=== PATIENT | female | born 1945 | race Caucasian/White ===

== ENCOUNTER → 2016-09-22 | Outpatient (CLI) | payer OTHER ==
[~2016-09-22] MED LIST: 'PARAFON FORTE500 M1 PO; COZAAR50 M1 PO; DULE1ARO1 INH; HYDROCODONE BIT1 T11 PO; Motrin,Rufen400 MG PO; PERCOCET 325 MG1 TA2 PO; ZANTAC 150150 MG PO
== END | disposition home or self-care (01) ==
LOC: RAD 12:18
DX: M25.562 Pain in left knee (principal)

== ENCOUNTER → 2016-09-28 | Outpatient (CLI) | payer OTHER | END | disposition home or self-care (01) | LOC: MAMMO 00:48 | DX: Z12.31 Encounter for screening mammogram for malignant neoplasm of breast (principal) ==

== ENCOUNTER 2017-05-04 08:44 | Inpatient (IN) | payer MEDICARE, MEDICAID ==
[~2017-05-04] VITALS: Ht 162.5 cm; Wt 69.9 kg
[2017-05-04 08:50] VITALS: BP 151/80
[2017-05-04 09:05] LABS: BILIRUBIN NEGATIVE (NEGATIVE); BLOOD TRACE-LYSED (NEGATIVE); CLARITY CLEAR (CLEAR); COLOR YELLOW (YELLOW); GLUCOSE NEGATIVE (NEGATIVE); KETONE NEGATIVE (NEGATIVE); LEUKO ESTERASE TRACE (NEGATIVE); NITRITE NEGATIVE (NEGATIVE)
[2017-05-04 09:37] LABS: BASO # 0.1 10*3/uL (0.0-0.1); BASO % 0.5 % (0.0-1.0); EOS # 0.3 10*3/uL (0.0-0.4); EOS % 1.8 % (1.0-4.0); HEMATOCRIT 39.7 % (37.0-47.0); HEMOGLOBIN 12.9 g/dl (12.0-16.0); LYMPH # 1.5 10*3/uL (1.3-4.4); MEAN CELL VOLUME 93.4 fl (81.0-99.0); MEAN CORPUSCULAR HGB 30.4 pg (27.0-31.0); MEAN CORPUSCULAR HGB CONC 32.5 g/dl (33.0-37.0); MEAN PLATELET VOLUME 9.4 fl (9.6-12.3); MONO % 6.4 % (3.0-9.0); NEUT % 80.7 % (47.0-73.0); PLATELET COUNT AUTOMATED 358 10*3/uL (130-400); RED BLOOD COUNT 4.25 10*6/uL (4.10-5.10); RED CELL DISTRI WIDTH 12.3 % (0-14.5); WHITE BLOOD COUNT 14.8 10*3/uL (4.8-10.8)
--- NOTE | 2017-05-04 09:47 | NUR ---
PAIN LEVEL MUCH IMPROVED WITH MORPHINE DOSING. NAUSEA ALREADY RESOLVED.
[2017-05-04 09:52] LABS: ALBUMIN 3.2 gm/dl (3.1-4.5); ALKALINE PHOSPHATASE 109 U/L (45-117); BUN 23 mg/dl (7-24); CHLORIDE 108 mmol/L (98-107); CREATININE 0.97 mg/dL (0.55-1.02); LIPASE 130 U/L (73-393); MAGNESIUM 1.9 mg/dL (1.5-2.1); POTASSIUM 3.4 mmol/L (3.5-5.1); SGOT/AST 35 IU/L (3-35); SGPT/ALT 24 U/L (12-78); SODIUM 137 mmol/L (136-145); TOTAL PROTEIN 7.9 gm/dL (6.4-8.2)
--- NOTE | 2017-05-04 12:10 | NUR ---
ALL TESTING HAS RETURNED, AWAITING RETURN CALL FROM DR ZEE FOR POSSIBLE ADMISION VS TRANSFER.
[2017-05-04 12:28] VITALS: BP 146/80
--- NOTE | 2017-05-04 13:34 | NUR ---
ZOSYN AND SALINE INFUSING AT TIME OF ADMISSION. FENTAYL STOP TIME INFUSION IV PUSH IS NOW.
--- NOTE | 2017-05-04 13:55 | NUR ---
NS BOLUS AND POTASSIUM PHOSPHATE GIVEN. WILL NOT SCAN ON EMAR.
[2017-05-04 14:00] VITALS: BP 135/75
--- NOTE | 2017-05-04 14:00 | NUR ---
A 72, admitted to , under the services of ESE Tapia DO with a diagnosis of LESION OF LIVER, SEPSIS, DIVERTICULITIS OF INTESTINE. Chief complaint is ABDOMINAL PAIN FOR 2 DAYS THAT RADIATES INTO BACK. DENIES URINARY SYMPTOMS. Patient arrived via bed from ER. Monitor applied. Initial assessment completed. Vital signs taken and recorded. ESE TAPIA DO notified of admission to the unit. Orders received. See assessment for past medical history, medications and allergies. Patient and/or family oriented to unit. [facility] visitation policy reviewed. Clothing/patient valuable form completed. SWETHA AGUIRRE
[2017-05-04] MEDS ORDERED: ADVAIR 250/501 EA INH (14:35)
[2017-05-04] MEDS ORDERED: PREDNISONE10 M1 PO (14:37)
--- NOTE | 2017-05-04 15:36 | NUR ---
MED REC UP TO DATE PER PATIENT LIST.
--- NOTE | 2017-05-04 15:50 | NUR ---
DR ROBERTSON AWARE OF CONSULT
[2017-05-04 16:00] VITALS: BP 147/63
--- NOTE | 2017-05-04 16:40 | NUR ---
PT GIVEN PRN IV MORPHINE FOR COMPLAINTS OF ABD PAIN, RATES PAIN 7/10. WILL MONITOR.
--- NOTE | 2017-05-04 17:30 | NUR ---
PT STATES MEDICATION EFFECTIVE FOR PAIN.
[2017-05-04 20:00] VITALS: BP 139/73
--- NOTE | 2017-05-04 20:51 | NUR ---
DR. ESCALERA CALLED AT THIS TIME RETAING TO PT. TEMP BEING 102 ORALLY IN REGARDS TO GIVE PT. PO TYLENOL SINCE PT. IS NPO. DR. ESCALERA GAVE OK TO GIVE PO TYLENOL.
[2017-05-05] VITALS (12 sets, daily range): BP systolic 101–153; BP diastolic 50–72
--- NOTE | 2017-05-05 04:59 | NUR ---
24 HR chart check completed.
[2017-05-05 07:03] LABS: BASO # 0.1 10*3/uL (0.0-0.1); BASO % 0.5 % (0.0-1.0); EOS # 0.2 10*3/uL (0.0-0.4); EOS % 1.5 % (1.0-4.0); HEMATOCRIT 35.4 % (37.0-47.0); HEMOGLOBIN 11.3 g/dl (12.0-16.0); LYMPH # 2.1 10*3/uL (1.3-4.4); LYMPH % 14.9 % (27.0-41.0); MEAN CELL VOLUME 93.7 fl (81.0-99.0); MEAN CORPUSCULAR HGB 29.9 pg (27.0-31.0); MEAN CORPUSCULAR HGB CONC 31.9 g/dl (33.0-37.0); MEAN PLATELET VOLUME 9.9 fl (9.6-12.3); MONO # 1.3 10*3/uL (0.1-1.0); MONO % 9.5 % (3.0-9.0); NEUT # 10.3 10*3/uL (2.3-7.9); NEUT % 73.1 % (47.0-73.0); PLATELET COUNT AUTOMATED 343 10*3/uL (130-400); RED BLOOD COUNT 3.78 10*6/uL (4.10-5.10); RED CELL DISTRI WIDTH 12.1 % (0-14.5); WHITE BLOOD COUNT 14.1 10*3/uL (4.8-10.8)
[2017-05-05 07:30] LABS: CHLORIDE 108 mmol/L (98-107); POTASSIUM 3.7 mmol/L (3.5-5.1); SODIUM 139 mmol/L (136-145)
[2017-05-05 07:39] LABS: ALBUMIN 2.7 gm/dl (3.1-4.5); ALKALINE PHOSPHATASE 90 U/L (45-117); BUN 15 mg/dl (7-24); CHOLESTEROL 124 mg/dL (<200); CREATININE 0.91 mg/dL (0.55-1.02); FREE T4 1.58 ng/dl (0.76-1.46); HDL CHOLESTEROL 52 mg/dl (40-60); LDL CHOLESTEROL 52 mg/dL (9-159); MAGNESIUM 1.9 mg/dL (1.5-2.1); PHOSPHOROUS 2.3 mg/dL (2.5-4.9); SGOT/AST 25 IU/L (3-35); SGPT/ALT 17 U/L (12-78); TOTAL PROTEIN 6.6 gm/dL (6.4-8.2); TRIGLYCERIDES 99 mg/dl (<150); VLDL CHOLESTEROL 20 mg/dL (6-40)
--- NOTE | 2017-05-05 07:54 | NUR ---
Medicated with norco per prn order for complaints of bl lower quads of abdomen. Lungs diminished with exp wheezes noted to left side anterior and posteriorly. IVF infusing per orders. See assesment.
[2017-05-05] MEDS ORDERED: PROVENTIL HFA6.7 GM INH (07:56)
[2017-05-05 08:10] LABS: VITAMIN D, 25-HYDROXY 21.6 ng/mL (30-100)
--- NOTE | 2017-05-05 08:54 | NUR ---
Pt states that pain medication was effective. Dr. Webster in and rounded on pt.
--- NOTE | 2017-05-05 09:02 | NUR ---
Dr. Webster called the floor to notify me that he had spoke with Dr. Gates regarding MRI and possiblity of liver biopsy. Dr. Webster states that MRI is not needed and that Dr. Gates is recommending liver biopsy. Dr. Webster states that Dr. Gates can perform this today. Requesting that primary be notified of this so that they can order. I spoke with Dr. Young and notified him of what Dr. Webster stated regarding his conversation with Dr. Gates. Dr. Young states ok for me to enter orders as discussed.
--- NOTE | 2017-05-05 09:17 | NUR ---
[employer] in to talk to patient. Patient states lives at home with son. There are few steps in the home. 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 MAYITO AMAYA
--- NOTE | 2017-05-05 11:22 | NUR ---
Pt being taken off floor for liver biopsy.
--- NOTE | 2017-05-05 12:15 | NUR ---
Pt returned from having liver biopsy. Instructed to remain on bedrest for 4 hours. Bp was 146/69 hr 88, respirations 18, oral temp 99.5, pox 97% on RA. Requesting pain medcation. No bleeding noted to [facility], bandaid over site. Assessment completed.
--- NOTE | 2017-05-05 12:21 | NUR ---
Medicated with norco per prn order for complaints of pain at liver biopsy site and lower abdomen.
--- NOTE | 2017-05-05 14:45 | NUR ---
Vitals completed s/p liver biospy. Bandaid intadt to mid upper abdomen from biospy. No bleeding was noted and was checked with each additional vital sign per orders. Pt is currently maintained on bed rest and is eating lunch. Dr. Vance saw pt and discussed testing, states that it is ok to dc monitoring analyst. Removed at this time.
--- NOTE | 2017-05-05 19:46 | NUR ---
patient resting in bed with brother, sister in law, and son at bedside. denies pain at this time. iv fluids infusing without difficulty. no needs made at this time. bed in lowest position, call light inr each
--- NOTE | 2017-05-05 20:09 | NUR ---
DR HUERTA AWARE OF PATIENT WHEEZING AND REQUESTING HOME INHALER BEING CONTINUED. STATES HE WILL TAKE CARE OF IT
--- NOTE | 2017-05-05 20:31 | NUR ---
medicated with prn norco for abd pain rated 3/10 on a 0/10 pain scale, temp of 100
--- NOTE | 2017-05-05 21:59 | NUR ---
call dr jones to remind him about ordering the patient's home inhaler. states he ordered it on the wrong room and apologized. states will order it now
[2017-05-06] VITALS: BP 121/58
--- NOTE | 2017-05-06 01:27 | NUR ---
PATIENT RESTING IN BED WITH NO S/S OF DISTRESS. MEDICATED WITH PRN TYLENOL FOR TEMP OF 100. WILL CONTINUE TO MONITOR
--- NOTE | 2017-05-06 05:32 | NUR ---
24 HR chart check completed.
[2017-05-06 06:09] LABS: BASO # 0.1 10*3/uL (0.0-0.1); BASO % 0.4 % (0.0-1.0); EOS # 0.3 10*3/uL (0.0-0.4); HEMATOCRIT 32.3 % (37.0-47.0); HEMOGLOBIN 10.3 g/dl (12.0-16.0); LYMPH # 1.9 10*3/uL (1.3-4.4); LYMPH % 14.6 % (27.0-41.0); MEAN CELL VOLUME 94.7 fl (81.0-99.0); MEAN CORPUSCULAR HGB 30.2 pg (27.0-31.0); MEAN CORPUSCULAR HGB CONC 31.9 g/dl (33.0-37.0); MEAN PLATELET VOLUME 9.5 fl (9.6-12.3); MONO # 1.1 10*3/uL (0.1-1.0); MONO % 8.5 % (3.0-9.0); NEUT # 9.8 10*3/uL (2.3-7.9); NEUT % 73.7 % (47.0-73.0); PLATELET COUNT AUTOMATED 268 10*3/uL (130-400); RED BLOOD COUNT 3.41 10*6/uL (4.10-5.10); RED CELL DISTRI WIDTH 12.2 % (0-14.5); WHITE BLOOD COUNT 13.3 10*3/uL (4.8-10.8)
[2017-05-06 06:48] LABS: BUN 16 mg/dl (7-24); CHLORIDE 110 mmol/L (98-107); MAGNESIUM 1.9 mg/dL (1.5-2.1); POTASSIUM 4.2 mmol/L (3.5-5.1); SODIUM 139 mmol/L (136-145)
[2017-05-06 06:49] LABS: CREATININE 0.93 mg/dL (0.55-1.02); PHOSPHOROUS 2.3 mg/dL (2.5-4.9)
--- NOTE | 2017-05-06 07:34 | NUR ---
PATIENT C/O LLQ ABDOMINAL PAIN. RATED PAIN 7/10 ON PAIN SCALE. MEDICATED WITH NORCO PER PRN ORDER.
[2017-05-06 08:00] VITALS: BP 132/68
--- NOTE | 2017-05-06 09:00 | NUR ---
case management visits with patient, patient denies any home needs at this time
[2017-05-06 12:00] VITALS: BP 138/70
[2017-05-06 16:00] VITALS: BP 121/61
--- NOTE | 2017-05-06 17:27 | NUR ---
MEDICATED WITH TYLENOL PER PRN ORDER FOR TEMPERATURE 102.6. WILL CONTINUE TO MONITOR.
[2017-05-06 20:00] VITALS: BP 115/60
--- NOTE | 2017-05-06 20:00 | NUR ---
PATIENT RESTING IN BED WATCHING TV. FLUIDS INFUSING WITHOUT DIFFICULTY. ALERT TO PERSON PLACE AND TIME. LUNGS CLEAR TO AUSCULATION. PATIENT STATES SHE HAS NOT HAD A BOWEL MOVEMENT TODAY BUT HAS BEEN PASSING GAS. BANDAGE DRY AND INTACT TO ABDOMEN. BED IN LOWEST POSITOIN, CALL LIGHT IN REACH
--- NOTE | 2017-05-06 20:28 | NUR ---
NORCO PRN GIVEN FOR ABD PAIN RATED 6/10 ON A 0/10 PAIN SCALE. WILL MONITOR, BED IN LOWEST POSITION, CALL LIGHT IN REACH
--- NOTE | 2017-05-06 21:28 | NUR ---
MEDICATION EFFECTIVE PER PATIENT
[2017-05-07] VITALS: BP 117/64
--- NOTE | 2017-05-07 02:16 | NUR ---
PATIENT RESTING IN BED ON LEFT SIDE WITH EYES CLOSED. NO S/S OF DISTRESS. BED IN LOWEST POSITION, CALL LIGHT IN REACH
[2017-05-07 06:27] LABS: BASO % 0.3 % (0.0-1.0); EOS # 0.4 10*3/uL (0.0-0.4); EOS % 3.7 % (1.0-4.0); HEMATOCRIT 30.1 % (37.0-47.0); HEMOGLOBIN 9.6 g/dl (12.0-16.0); LYMPH # 1.5 10*3/uL (1.3-4.4); LYMPH % 13.2 % (27.0-41.0); MEAN CELL VOLUME 95.3 fl (81.0-99.0); MEAN CORPUSCULAR HGB 30.4 pg (27.0-31.0); MEAN CORPUSCULAR HGB CONC 31.9 g/dl (33.0-37.0); MEAN PLATELET VOLUME 10.1 fl (9.6-12.3); MONO # 0.9 10*3/uL (0.1-1.0); MONO % 7.7 % (3.0-9.0); NEUT # 8.7 10*3/uL (2.3-7.9); NEUT % 74.3 % (47.0-73.0); PLATELET COUNT AUTOMATED 286 10*3/uL (130-400); RED BLOOD COUNT 3.16 10*6/uL (4.10-5.10); RED CELL DISTRI WIDTH 12.2 % (0-14.5); WHITE BLOOD COUNT 11.6 10*3/uL (4.8-10.8)
[2017-05-07 06:29] LABS: BUN 12 mg/dl (7-24); CHLORIDE 112 mmol/L (98-107); SODIUM 140 mmol/L (136-145)
[2017-05-07 06:30] LABS: CREATININE 0.78 mg/dL (0.55-1.02); PHOSPHOROUS 1.5 mg/dL (2.5-4.9)
[2017-05-07 08:00] VITALS: BP 160/78
--- NOTE | 2017-05-07 08:19 | NUR ---
Dr. Webster in . discussed bx results w/ pt. family was called by pt. and in to discuss trsf. pt. expressed anxiety over result , will discuss antianxiety w/ physician. pt. stated she would like just a small dose.
--- NOTE | 2017-05-07 08:25 | NUR ---
Dr. Pablo was notified of pt. need for light sedative.
--- NOTE | 2017-05-07 09:00 | NUR ---
case management visits with patient, patient denies any home needs at this time
--- NOTE | 2017-05-07 10:09 | NUR ---
Dr. Webster in and spoke w/ pt. family re: bx result and need for transfer. All members in agreement. Dr. Webster also spoke w/ Dr. Weber. Arrangements pending. Medicated for anxiety see E-Mar. Pain med effective to reduce pain.
[2017-05-07 12:00] VITALS: BP 118/79
--- NOTE | 2017-05-07 14:27 | NUR ---
Medicated for c/o abdominal pain 01/13
[2017-05-07 16:00] VITALS: BP 135/68
[2017-05-07] MEDS ORDERED: ATIVAN0.5 MG PO (16:03)
[2017-05-07] MEDS ORDERED: AUGMENTIN 875875 MG PO (16:03)
[2017-05-07] MEDS ORDERED: NORCO 5-325 TA1 EACH PO (16:07)
--- NOTE | 2017-05-07 17:36 | NUR ---
Med effective for pain reduction. Dr. najera in spoke w/ Pt. and Dr. Webster. Re; Discharge to home w/ palm follow up. Pt. and family agreeable. Dr. Arnold office called in to confirm appointment. Discharge order recieved. Instruction given . Voiced understanding. . Pt was medicated w/ tylenol and discharged to home.
== END 2017-05-07 17:36 | disposition home or self-care (01) | DRG 871 ==
LOC: ED 08:44 → EDHOLD 12:47 → 4E 12:47
PROVIDERS: Emergency Medicine; Internal Medicine Hospice and Palliative Medicine; Student in an Organized Health Care Education/Training Program; ADMIT Internal Medicine
PROC: 0FB23ZX Excision of Left Lobe Liver, Percutaneous Approach, Diagnostic (ICD-10-PCS; principal; 2017-05-05)
DX: A41.9 Sepsis, unspecified organism (principal); E43 Unspecified severe protein-calorie malnutrition; E87.8 Other disorders of electrolyte and fluid balance, not elsewhere classified; C78.7 Secondary malignant neoplasm of liver and intrahepatic bile duct; K57.20 Diverticulitis of large intestine with perforation and abscess without bleeding; R31.29 Other microscopic hematuria; C80.1 Malignant (primary) neoplasm, unspecified; N30.00 Acute cystitis without hematuria; I10 Essential (primary) hypertension; E87.6 Hypokalemia; J45.909 Unspecified asthma, uncomplicated; K63.5 Polyp of colon; Z90.710 Acquired absence of both cervix and uterus; Z83.3 Family history of diabetes mellitus; Z87.81 Personal history of (healed) traumatic fracture; Z68.26 Body mass index [BMI] 26.0-26.9, adult; Z79.899 Other long term (current) drug therapy; Z80.42 Family history of malignant neoplasm of prostate

== ENCOUNTER → 2017-05-17 | Outpatient (CLI) | payer MEDICARE, MEDICAID ==
[~2017-05-17] MED LIST changes: +ADVAIR 250/501 EA INH; +ATIVAN0.5 MG PO; +AUGMENTIN 875875 MG PO; +NORCO 5-325 TA1 EACH PO; +PREDNISONE10 M1 PO; +PROVENTIL HFA6.7 GM INH
--- NOTE | ~2017-05-17 | ST ---
[place], [place] EXERCISE STRESS TEST REPORT [id number] UNIT #: [id number] ROOM: DOCTOR: JHON BRUMFIELD MD BIRTHDATE: [birth year] DOS: 05/17/2017 EXERCISE STRESS TEST. REASON FOR STRESS TEST: Preoperative assessment, prior liver surgery, history of hypertension. PROCEDURE: The patient walked on a full Jona protocol for 3 minutes and had to stop because of fatigue and dyspnea. She denied any associated chest pain. Her resting heart rate of 95 jose to a maximum heart rate of 162, which represented 108% of her maximum predicted heart rate at a workload of 5 mets. Her resting blood pressure of 160/78 jose to 210/50. The resting electrocardiogram showed sinus rhythm with mild nonspecific ST changes. With exercise, the patient did have frequent premature ventricular contractions with occasional couplets. She also developed [address] segment depression in leads V4 through V6 and leads II, III and aVF. These EKG changes reverted to baseline within 1 minute of the completion of the exercise test. The Beatty treadmill score was -7 consistent with a moderate risk for cardiac events in the next year. IMPRESSION: 1. Limited exercise capacity. The patient had to stop because of dyspnea. She did not have any chest pain. 2. Hypertensive blood pressure response to exercise. 3. Abnormals electrocardiographic response to exercise with flat ST segment depression in the inferior and lateral leads that reverted to baseline early in recovery. The Beatty treadmill score was -7 consistent with a moderate risk for cardiac events. The results of the stress test are not conclusive given her baseline EKG changes, and limited exercise capacity and hypertensive blood pressure response. I would suggest a pharmacologic nuclear perfusion study for further assessment of the patient's cardiac status. JHON BRUMFIELD MD CM:STRESS:EXERCISE STRESS TEST REPORT [id number] JHON BRUMFIELD MD
--- NOTE | 2017-05-17 10:45 | NUR ---
INFORMED CONSENT SIGNED FOR STANDARD STRESS TEST WITH DR. BRUMFIELD. RESTING EKG NSR, HR 95, BP 160/78. COMPLETED 3:00 OF A STANDARD CHRIS PROTOCOL COMPLETING STAGE I, 1.7 MPH/10% GRADE. PEAK HEART RATE OF 162 ACHIEVED WHICH IS 108% OF PREDICTED MAXIMUM AND A PEAK BP OF 210/50. TEST TERMINATED D/T FATIGUE. PVC/COUPLETS NOTED WITH ST CHANGES. HAS A FAIR EXERCISE TOLERANCE. LAST RECOVERY HR 111, BP 210/72. THIS IS AN ABNORMAL STRESS TEST. LEFT CARDIOLOGY IN STABLE CONDITION.
== END | disposition home or self-care (01) ==
LOC: CARD 01:16
DX: Z01.810 Encounter for preprocedural cardiovascular examination (principal); C22.9 Malignant neoplasm of liver, not specified as primary or secondary; I10 Essential (primary) hypertension

== ENCOUNTER → 2021-08-06 | Outpatient (CLI) | payer MEDICARE, MEDICAID ==
[~2021-08-06] MED LIST changes: +ASPIRIN ADULT L81 M2 PO; +Ipratropium Brom3 ML INH; +NEBULIZER NEB; +OMNICEF300 MG PO; +[UNRECOGNIZED DRUG - OTHER] PO
[2021-08-06 13:04] LABS: BASO # 0.1 10*3/uL (0.0-0.1); BASO % 0.6 % (0.0-1.0); EOS # 1.5 10*3/uL (0.0-0.4); EOS % 16.9 % (1.0-4.0); HEMATOCRIT 32.4 % (37.0-47.0); LYMPH # 1.1 10*3/uL (1.3-4.4); LYMPH % 12.7 % (27.0-41.0); MEAN CELL VOLUME 99.1 fl (81.0-99.0); MEAN CORPUSCULAR HGB 30.6 pg (27.0-31.0); MEAN CORPUSCULAR HGB CONC 30.9 g/dl (33.0-37.0); MEAN PLATELET VOLUME 9.2 fl (9.6-12.3); MONO # 0.4 10*3/uL (0.1-1.0); MONO % 4.7 % (3.0-9.0); NEUT # 5.4 10*3/uL (2.3-7.9); NEUT % 63.5 % (47.0-73.0); PLATELET COUNT AUTOMATED 236 10*3/uL (130-400); RED BLOOD COUNT 3.27 10*6/uL (4.10-5.10); RED CELL DISTRI WIDTH 12.7 % (0-14.5); WHITE BLOOD COUNT 8.6 10*3/uL (4.8-10.8)
[2021-08-06 13:19] LABS: ALBUMIN 2.9 gm/dl (3.1-4.5); CREATININE 2.25 mg/dL (0.55-1.02); POTASSIUM 4.3 mmol/L (3.5-5.1); TOTAL PROTEIN 7.8 gm/dL (6.4-8.2)
== END | disposition home or self-care (01) ==
LOC: LAB 12:44 → US 13:30
PROVIDERS: Student in an Organized Health Care Education/Training Program; ATTEND Student in an Organized Health Care Education/Training Program
DX: I63.9 Cerebral infarction, unspecified (principal); E78.5 Hyperlipidemia, unspecified; C22.1 Intrahepatic bile duct carcinoma; I65.21 Occlusion and stenosis of right carotid artery

== ENCOUNTER → 2021-09-19 | Outpatient (CLI) | payer MEDICARE, MEDICAID ==
[2021-09-19 14:10] LABS: HEMATOCRIT 30.4 % (37.0-47.0); MEAN CELL VOLUME 98.7 fl (81.0-99.0); MEAN CORPUSCULAR HGB 30.2 pg (27.0-31.0); MEAN CORPUSCULAR HGB CONC 30.6 g/dl (33.0-37.0); MEAN PLATELET VOLUME 9.8 fl (9.6-12.3); PLATELET COUNT AUTOMATED 199 10*3/uL (130-400); RED BLOOD COUNT 3.08 10*6/uL (4.10-5.10); RED CELL DISTRI WIDTH 13.2 % (0-14.5); WHITE BLOOD COUNT 8.6 10*3/uL (4.8-10.8)
[2021-09-19 14:26] LABS: ALBUMIN 2.7 gm/dl (3.1-4.5); CREATININE 2.57 mg/dL (0.55-1.02); TOTAL PROTEIN 7.8 gm/dL (6.4-8.2)
[2021-09-19 14:31] LABS: BASOPHILS 2 % (0-1); BURR CELLS FEW; PLATELET SUFFICIENCY NORMAL (NORMAL); TOTAL CELLS COUNTED 100 #CELLS
== END | disposition home or self-care (01) ==
LOC: LAB 13:42
PROVIDERS: ATTEND Internal Medicine Hematology & Oncology
DX: C78.7 Secondary malignant neoplasm of liver and intrahepatic bile duct (principal)

== ENCOUNTER 2021-11-17 18:01 | Inpatient (IN) | payer MEDICARE, MEDICAID ==
[2021-11-17] VITALS: BP 134/64
[~2021-11-17] VITALS: Ht 162.6 cm; Wt 46.4 kg
[2021-11-17 18:15] VITALS: BP 141/90
[2021-11-17 19:18] LABS: BASO # 0.1 10*3/uL (0.0-0.1); BASO % 0.7 % (0.0-1.0); EOS # 1.6 10*3/uL (0.0-0.4); EOS % 11.1 % (1.0-4.0); HEMATOCRIT 36.3 % (37.0-47.0); LYMPH # 1.5 10*3/uL (1.3-4.4); LYMPH % 10.4 % (27.0-41.0); MEAN CELL VOLUME 98.6 fl (81.0-99.0); MEAN CORPUSCULAR HGB 30.2 pg (27.0-31.0); MEAN CORPUSCULAR HGB CONC 30.6 g/dl (33.0-37.0); MEAN PLATELET VOLUME 9.9 fl (9.6-12.3); MONO % 7.1 % (3.0-9.0); NEUT # 9.8 10*3/uL (2.3-7.9); NEUT % 69.9 % (47.0-73.0); PLATELET COUNT AUTOMATED 244 10*3/uL (130-400); RED BLOOD COUNT 3.68 10*6/uL (4.10-5.10); RED CELL DISTRI WIDTH 12.7 % (0-14.5)
[2021-11-17 19:33] LABS: CREATININE 3.21 mg/dL (0.55-1.02); TOTAL PROTEIN 8.3 gm/dL (6.4-8.2)
[2021-11-17 19:35] LABS: ACT PARTIAL THROMBO TIME 27.6 SECONDS (20.0-32.1)
[2021-11-17 20:00] VITALS: BP 134/64
[2021-11-17 22:00] VITALS: BP 134/64
[2021-11-17] MEDS ORDERED: ROSUVASTATIN CA40 MG PO (22:12)
[2021-11-18 06:37] LABS: BASO % 0.2 % (0.0-1.0); EOS % 0.2 % (1.0-4.0); HEMATOCRIT 27.2 % (37.0-47.0); LYMPH # 0.4 10*3/uL (1.3-4.4); MEAN CELL VOLUME 98.6 fl (81.0-99.0); MEAN CORPUSCULAR HGB 30.1 pg (27.0-31.0); MEAN CORPUSCULAR HGB CONC 30.5 g/dl (33.0-37.0); MEAN PLATELET VOLUME 9.9 fl (9.6-12.3); MONO % 0.4 % (3.0-9.0); NEUT # 4.4 10*3/uL (2.3-7.9); RED BLOOD COUNT 2.76 10*6/uL (4.10-5.10); RED CELL DISTRI WIDTH 12.7 % (0-14.5); WHITE BLOOD COUNT 4.9 10*3/uL (4.8-10.8)
[2021-11-18 06:41] LABS: CREATININE 2.71 mg/dL (0.55-1.02); POTASSIUM 5.1 mmol/L (3.5-5.1); TOTAL PROTEIN 6.4 gm/dL (6.4-8.2)
[2021-11-18 06:42] LABS: PLATELET COUNT AUTOMATED 152 10*3/uL (130-400)
[2021-11-18 08:00] VITALS: BP 126/60
[2021-11-18 12:00] VITALS: BP 138/77
[2021-11-18 15:15] VITALS: BP 98/54
[2021-11-18 20:00] VITALS: BP 95/59
[2021-11-19] VITALS: BP 117/53
[2021-11-19 06:01] LABS: MEAN CELL VOLUME 96.8 fl (81.0-99.0); MEAN CORPUSCULAR HGB 30.2 pg (27.0-31.0); MEAN CORPUSCULAR HGB CONC 31.3 g/dl (33.0-37.0); PLATELET COUNT AUTOMATED 160 10*3/uL (130-400); RED BLOOD COUNT 2.48 10*6/uL (4.10-5.10); RED CELL DISTRI WIDTH 12.5 % (0-14.5); WHITE BLOOD COUNT 14.4 10*3/uL (4.8-10.8)
[2021-11-19 06:11] LABS: CREATININE 2.58 mg/dL (0.55-1.02); POTASSIUM 4.3 mmol/L (3.5-5.1)
[2021-11-19 06:37] LABS: MANUAL DIFF REFLEX YES
[2021-11-19 07:59] LABS: PLATELET SUFFICIENCY NORMAL (NORMAL); TOTAL CELLS COUNTED 100 #CELLS
[2021-11-19 08:00] VITALS: BP 112/58; BP 115/53
[2021-11-19 12:00] VITALS: BP 114/58
[2021-11-19 16:00] VITALS: BP 106/61
[2021-11-19 20:00] VITALS: BP 135/64
[2021-11-20] VITALS: BP 125/67
[2021-11-20 05:48] LABS: CREATININE 2.39 mg/dL (0.55-1.02); POTASSIUM 4.4 mmol/L (3.5-5.1)
[2021-11-20 06:14] LABS: HEMATOCRIT 24.8 % (37.0-47.0); MEAN CELL VOLUME 97.3 fl (81.0-99.0); MEAN CORPUSCULAR HGB 29.8 pg (27.0-31.0); MEAN CORPUSCULAR HGB CONC 30.6 g/dl (33.0-37.0); PLATELET COUNT AUTOMATED 162 10*3/uL (130-400); RED BLOOD COUNT 2.55 10*6/uL (4.10-5.10); RED CELL DISTRI WIDTH 12.7 % (0-14.5); WHITE BLOOD COUNT 11.4 10*3/uL (4.8-10.8)
[2021-11-20 06:18] LABS: MANUAL DIFF REFLEX YES
[2021-11-20 06:50] LABS: BURR CELLS FEW; OVALOCYTES FEW; PLATELET SUFFICIENCY NORMAL (NORMAL); TOTAL CELLS COUNTED 100 #CELLS
[2021-11-20 08:00] VITALS: BP 132/64
[2021-11-20 12:00] VITALS: BP 128/66
[2021-11-20 14:43] VITALS: BP 141/59
[2021-11-20 20:00] VITALS: BP 124/62
[2021-11-21] VITALS: BP 106/52
[2021-11-21 06:11] LABS: CREATININE 2.12 mg/dL (0.55-1.02); POTASSIUM 4.1 mmol/L (3.5-5.1)
[2021-11-21 06:40] LABS: HEMATOCRIT 24.2 % (37.0-47.0); MEAN CELL VOLUME 96.8 fl (81.0-99.0); MEAN PLATELET VOLUME 10.4 fl (9.6-12.3); PLATELET COUNT AUTOMATED 160 10*3/uL (130-400); RED CELL DISTRI WIDTH 12.7 % (0-14.5); WHITE BLOOD COUNT 7.6 10*3/uL (4.8-10.8)
[2021-11-21 06:43] LABS: MANUAL DIFF REFLEX YES
[2021-11-21 07:28] LABS: PLATELET SUFFICIENCY NORMAL (NORMAL); TOTAL CELLS COUNTED 100 #CELLS
[2021-11-21 08:00] VITALS: BP 131/58
[2021-11-21] MEDS ORDERED: ZITHROMAX250 MG PO (11:26)
[2021-11-21] MEDS ORDERED: PREDNISONE10 MG PO (11:26)
[2021-11-21] MEDS ORDERED: MUCINEX1200 M1 PO (11:27)
== END 2021-11-21 12:48 | disposition home or self-care (01) | DRG 871 ==
LOC: ED 18:01 → EDHOLD 21:07 → 5E 21:07
PROVIDERS: Emergency Medicine; Family Medicine; Hospitalist; Internal Medicine; ADMIT Family Medicine; ATTEND Family Medicine
DX: A41.9 Sepsis, unspecified organism (principal); J18.9 Pneumonia, unspecified organism; J44.1 Chronic obstructive pulmonary disease with (acute) exacerbation; E87.2 Acidosis; R64 Cachexia; C22.9 Malignant neoplasm of liver, not specified as primary or secondary; N18.4 Chronic kidney disease, stage 4 (severe); Z68.1 Body mass index [BMI] 19.9 or less, adult; J44.0 Chronic obstructive pulmonary disease with (acute) lower respiratory infection; K76.9 Liver disease, unspecified; D64.9 Anemia, unspecified; I12.9 Hypertensive chronic kidney disease with stage 1 through stage 4 chronic kidney disease, or unspecified chronic kidney disease; E87.8 Other disorders of electrolyte and fluid balance, not elsewhere classified; R73.9 Hyperglycemia, unspecified; E83.41 Hypermagnesemia; E83.52 Hypercalcemia; J45.20 Mild intermittent asthma, uncomplicated; Z90.710 Acquired absence of both cervix and uterus; Z83.3 Family history of diabetes mellitus; Z80.42 Family history of malignant neoplasm of prostate; Z79.51 Long term (current) use of inhaled steroids; Z79.82 Long term (current) use of aspirin; Z79.899 Other long term (current) drug therapy